=== PATIENT | female | born 1945 | race Caucasian/White ===

== ENCOUNTER → 2017-11-17 | Outpatient (CLI) | payer MEDICARE, OTHER ==
[~2017-11-17] MED LIST: ANTIBIOTIC PO; CHOL10002 PO; CYCL10 PO; Cymbalta60 MG PO; Flovent Diskus50 MCG IH; HYDACE10B PO; OMEP20ER PO; PRED20 PO; PRIM50 PO; SIMV40 PO; TEMA30 PO
== END | disposition home or self-care (01) ==
LOC: LAB EV 11:40 → LAB SHORT 11:40
DX: R35.0 Frequency of micturition (principal)
CPT/HCPCS: 87086